=== PATIENT | male | born 1965 | race Caucasian/White ===

== ENCOUNTER 2018-03-16 11:58 | Emergency (ER) | payer OTHER ==
[~2018-03-16] VITALS: Ht 172.7 cm; Wt 63.0 kg
[~2018-03-16 11:58] MED LIST: CARV6 PO; CLOP75 PO; HYDR-3965 PO; INSU100I21 SQ; INSU100I3 SQ; SIMV20TA6 PO
[2018-03-16 12:38] LABS: GLUCOSE,POINT OF CARE 362 MG/DL (70-110)
[2018-03-16 14:15] VITALS: BP 138/99
== END 2018-03-16 15:19 | disposition home or self-care (01) ==
LOC: EMS 11:59
DX: S62.314A Displaced fracture of base of fourth metacarpal bone, right hand, initial encounter for closed fracture (principal); S62.306A Unspecified fracture of fifth metacarpal bone, right hand, initial encounter for closed fracture; R03.0 Elevated blood-pressure reading, without diagnosis of hypertension; E11.9 Type 2 diabetes mellitus without complications; I10 Essential (primary) hypertension; E78.00 Pure hypercholesterolemia, unspecified; F12.90 Cannabis use, unspecified, uncomplicated; W18.39XA Other fall on same level, initial encounter; Y93.89 Activity, other specified; Y92.89 Other specified places as the place of occurrence of the external cause; Y99.8 Other external cause status
CPT/HCPCS: 99284